=== PATIENT | female | born 1990 | race Caucasian/White ===

== ENCOUNTER 2019-04-22 18:57 | Emergency (ER) | payer OTHER ==
[2019-04-22 19:39] VITALS: BMI 18.8
--- NOTE | 2019-04-22 20:23 | PDOC ---
History of Present Illness - General Chief Complaint: Overdose Stated Complaint: SENT BY DOCTOR Time Seen by Provider: 04/22/19 20:22 Past History - Past Medical History Allergies/Adverse Reactions: Allergies Allergy/AdvReac Type Severity Reaction Status Date / Time No Known Allergies Allergy Verified 04/22/19 19:40 Home Medications: Ambulatory Orders LORazepam [Ativan] 0.5 mg PO PRN PRN 04/22/19 Levonorgestrel-Ethin Estradiol [Kurvelo] 1 each PO DAILY 04/22/19 Sertraline HCl [Zoloft -] 50 mg PO DAILY 04/22/19 Spironolactone [Aldactone] 75 mg PO DAILY 04/22/19 traZODone HCL [Trazodone HCl] 100 mg PO HS 04/22/19 COPD: No Psychiatric Problems: Yes (ANXIETY DISORDER) Other medical history: PCOS - Psycho Social/Smoking Cessation Hx Smoking History: Never smoked Hx Alcohol Use: No Drug/Substance Use Hx: No *Physical Exam - Vital Signs Last Vital Signs Temp Pulse Resp BP Pulse Ox 98.2 F 86 19 121/54 L 99 04/22/19 19:34 04/22/19 19:34 04/22/19 19:34 04/22/19 19:34 04/22/19 19:34 ED Treatment Course - LABORATORY CBC & Chemistry Diagram: 04/22/19 21:05 04/22/19 21:05 Medical Decision Making - Medical Decision Making 04/22/19 20:47 HPI: 28yo F hx MDD, insomnia, anxiety, anorexia (in remission), and PCOS sent by for trazodone overdose 2000mg plus 2 tabs ativan last night (between 2300 and 0000 04/22/19) in attempt to harm self, now with fatigue, headache, nausea , and unsteadiness. Pt has hx of depression since childhood with multiple psychiatric hospitalizations for anorexia, anxiety, and depression, last hospitalization 2011 for nyquil overdose, no other hx of suicide attempts or harming self. Pt has been depressed and hopeless during the holidays, worsened as approach 29th birthday. Last night pt wanted to hurt self so took 2000mg Trazodone and 2 tablets of Ativan. Within 1hr, pt called mother to tell her and mother picked her up from her home. Pt lives at home with 2 roommates. Mother states pt was disoriented, confused, very sleepy, and off balance when walking. Mother took pt here to ED parking lot but did not come in because couldn't get pt out of car, instead went to mother's house. Today pt remained very tired so came in to ED. Endorses tiredness, worsening bitemporal pressure type headache, nausea, and unsteadiness on feet. Endorses confusion, blurry vision, twitching, and vertigo last night, resolved today. Denies other drug use, smoking, alcohol. Pt normally takes Trazodone 100mg-200mg nightly for sleep, Sertraline 50 daily (last yesterday), ativan PRN, OCPs, and spironolactone. Pt still very sad but denies suicidal plan because states feels really crappy now and doesn't want to keep feeling like that. States not trying to kill self but wouldn't mind dying. Denies HI, AVH, fever, chills, numbness/tingling, weakness, shortness of breath, cough, chest pain, palpitations, leg swelling, abdominal pain, blood in stool, diarrhea, constipation, vomiting, dysuria, hematuria. Psychiatrist - Yaquelin Tai, last saw a couple weeks ago Psychologist - Efrain Nielson, last saw a couple weeks ago ROS: Constitutional: Positive for fatigue. Negative for chills, fever, diaphoresis. HENT: Negative for sore throat, rhinorrhea, congestion. Eyes: Positive for blurry vision (resolved). Negative for photophobia. Respiratory: Negative for shortness of breath, cough, and wheezing. Cardiovascular: Negative for chest pain, palpitations, and leg swelling. Gastrointestinal: Positive for slight nausea. Negative for abdominal pain, blood in stool, constipation, diarrhea, and vomiting. Genitourinary: Negative for dysuria, flank pain, and hematuria. Musculoskeletal: Negative for myalgias, back pain, and neck pain. Skin: Negative for rash. Neurological: Positive for feeling of unsteadiness, vertigo, headache. Negative for light-headedness, syncope, weakness, numbness. Psychiatric/Behavioral: Positive for thoughts of hurting self. Negative for HI/ AVH. PE: Gen: Alert, NAD, tired-appearing but alert HEENT: PERRL, EOMI, MMM, NCAT. No conjunctival pallor. Sclera are non-icteric. Oropharynx is clear. CV: Regular rate and rhythm. No murmurs, rubs, or gallops. PULM: No resp distress. CTAB, no wheezes, rales, or rhonchi. ABD: soft, NT/ND, no rebound tenderness or guarding, no CVA tenderness. BACK: No TTP of c/t/l-spine. No step-offs or deformities. MSK: No bony deformities. 2+ pulses in all extremities. NEURO: AAOx3. PERRL. CN 2-12 intact. 5/5 strength in all extremities. Sensation to light touch intact in all extremities. No pronator drift. No dysmetria. No dysdiadochokinesia. No abnormal nystagmus. EXTREMITIES: No cyanosis. No clubbing. No edema. No calf tenderness. PSYCH: Depressed mood. +thoughts of hurting self, no HI/AVH. Normal thought pattern. SKIN: Warm and dry. Normal capillary refill. No rashes. No jaundice. MDM: 28yo F hx MDD, insomnia, anxiety, anorexia (in remission), and PCOS sent by for trazodone overdose 2000mg plus 2 tabs ativan last night (between 2300 and 0000 04/22/19) in attempt to harm self, now with fatigue, headache, nausea , and unsteadiness. Hemodynamically stable, afebrile, neurologically intact. Presentation c/w trazodone overdose. Also consider and r/o other intoxications including acetaminophen, salicylates, alcohol, drugs. Consider organic etiologies of depression and sx including anemia, metabolic derangement, thyroid pathology, , arrhythmia, ACS/NV, or infection. Due to SI and continued thoughts of harming self, pt is not safe to be left alone at this time - 1:1, psych consult. -EKG reviewed: NSR, 64bpm, ND interval 142ms, QRS duration 84ms, QTc 451ms, RAD , no e/o acute ischemia, no priors for comparison -CBC,CMP,Mg,Phos,Coags,Cardiac profile,TSH,Acetaminophen,Salicylates,Alcohol,UDS ,Upreg,UA -CXR: reviewed, no acute pathology -IVF -Poison control -general assembler installer -1:1 -Consult psychiatry -Called pt's psychiatrist Dr Tai - left voicemail -Dispo: likely transfer psych inpatient pending w/u and psych consult Poison control called, spoke with Nneka. Look for ESTIMATOR JEWELRY depression, myoclonus, ataxia, hypotension, bradycardia, QT prolongation Recommend repeat EKG in 6hrs. Check Mg. No QT prolonging drugs. Supportive care. If baseline at 6hrs, can transfer to psych. 04/22/19 21:12 Dr To web content writer for psychiatry - called, no answer, voicemail left. 04/22/19 22:19 Labs reviewed. CBC,CMP WBC 7.0 K/mm3 (4.0-10.0) 04/22/19 21:05 RBC 4.16 M/mm3 (3.60-5.2) 04/22/19 21:05 Hgb 13.9 GM/dL (10.7-15.3) 04/22/19 21:05 Hct 41.6 % (32.4-45.2) 04/22/19 21:05 MCV 99.9 fl (80-96) H 04/22/19 21:05 MCH 33.5 pg (25.7-33.7) 04/22/19 21:05 MCHC 33.5 g/dl (32.0-36.0) 04/22/19 21:05 RDW 12.7 % (11.6-15.6) 04/22/19 21:05 Plt Count 179 K/MM3 (134-434) 04/22/19 21:05 MPV 8.7 fl (7.5-11.1) 04/22/19 21:05 Absolute Neuts (auto) 5.2 K/mm3 (1.5-8.0) 04/22/19 21:05 Neutrophils % 74.1 % (42.8-82.8) 04/22/19 21:05 Lymphocytes % 15.4 % (8-40) 04/22/19 21:05 Monocytes % 10.1 % (3.8-10.2) 04/22/19 21:05 Eosinophils % 0.1 % (0-4.5) 04/22/19 21:05 Basophils % 0.3 % (0-2.0) 04/22/19 21:05 Nucleated RBC % 0 % (0-0) 04/22/19 21:05 Sodium 139 mmol/L (136-145) 04/22/19 21:05 Potassium 3.6 mmol/L (3.5-5.1) 04/22/19 21:05 Chloride 106 mmol/L (98-107) 04/22/19 21:05 Carbon Dioxide 29 mmol/L (21-32) 04/22/19 21:05 Anion Gap 4 MMOL/L (8-16) L 04/22/19 21:05 BUN 10.3 mg/dL (7-18) 04/22/19 21:05 Creatinine 1.1 mg/dL (0.55-1.3) 04/22/19 21:05 Est GFR (CKD-EPI)AfAm 78.57 04/22/19 21:05 Est GFR (CKD-EPI)NonAf 67.79 04/22/19 21:05 Random Glucose 116 mg/dL (74-106) H 04/22/19 21:05 Calcium 9.1 mg/dL (8.5-10.1) 04/22/19 21:05 Phosphorus 2.1 mg/dL (2.5-4.9) L 04/22/19 21:05 Magnesium 2.3 mg/dL (1.8-2.4) 04/22/19 21:05 Total Bilirubin 0.2 mg/dL (0.2-1) 04/22/19 21:05 AST 38 U/L (15-37) H 04/22/19 21:05 ALT 63 U/L (13-61) H 04/22/19 21:05 Alkaline Phosphatase 44 U/L (45-117) L 04/22/19 21:05 Creatine Kinase 42 U/L (26-192) 04/22/19 20:56 Troponin I < 0.02 ng/ml (0.00-0.05) 04/22/19 20:56 Total Protein 7.4 g/dl (6.4-8.2) 04/22/19 21:05 Albumin 4.0 g/dl (3.4-5.0) 04/22/19 21:05 TSH 0.43 uIU/ml (0.358-3.74) 04/22/19 21:05 04/22/19 23:08 Upreg negative. + MDMA (pt denies, most likely false positive from trazodone) 04/23/19 05:20 2nd EKG reviewed: of note, new prolonged QT compared to prior, QTc 466ms (prior 451) BP remains 90s/50s despite 3L IVF and oral hydration. Asymptomatic. No indication for pressors at this time. 04/23/19 06:05 Dr To's office called - no answer, voicemail left. 04/23/19 06:[address] To, answered, stated he would be here by 1000. 04/23/19 07:00 Pt sleeping comfortably. VSS. Pt signed out to oncoming team, pending Dr To evaluation. Discharge - Discharge Information Problems reviewed: Yes Clinical Impression/Diagnosis: Overdose of trazodone Condition: Stable Disposition: HOME - Follow up/Referral Referrals: ON STAFF,NOT [Primary Care Provider] - - Patient Discharge Instructions Patient Printed Discharge Instructions: DI for Drug Overdose in Adults Additional Instructions: Follow up with your Psychiatrist and Psychologist in the next 1-2 days as you had discussed with our Psychiatrist. Return to the Emergency Department if you experience any of the following: - thoughts of hurting yourself or others - change in behavior or personality, confusion - fainting, chest pain, or shortness of breath - anything that concerns you - Post Discharge Activity Work/Back to School Note: Back to Work, Parent(s) Back to Work Note, My Personal Safety Plan
[2019-04-22] MEDS ORDERED: SODIUM CHLORIDE 1,000 ML IV STA (20:42)
--- NOTE | 2019-04-22 20:50 | PDOC ---
Documentation entered by Cindy Hess SCRIBE, acting as scribe for Kriss Almaguer DO. Kriss Almaguer, DO: This documentation has been prepared by the Jimena max Joy, SCRIBE, under my direction and personally reviewed by me in its entirety. I confirm that the documentation accurately reflects all work, treatment, procedures, and medical decision making performed by me. Attending Attestation - Resident Resident Name: Velia Lilly - ED Attending Attestation I have performed the following: I have examined & evaluated the patient, The case was reviewed & discussed with the resident, I agree w/resident's findings & plan, Exceptions are as noted - HPI HPI: 04/22/19 21:22 The patient is a 28 year old female with significant past medical history of depression, insomnia, anxiety, anorexia, and PCOS who presents to the ED with overdose of trazodone (2,000 mg) and ativan s/p wanting to hurt herself/suicide attempt around 11 PM last night. Patient endorses that she currently does not plan to hurt herself but is more sad, tired, has a bitemporal headache, nausea, and feels unsteady. As per patient, after she overdosed, she felt out of it, she was sleepy, confused, and was off balance, so she called her mom who took her home. Patient states that she went to an urgent care but was sent here for further evaluation. The patient denies any hallucinations. Allergies: NKA - Physicial Exam PE: 04/22/19 21:35 gen: aaox3, flat affect, tearful heart: +s1s2 reg lungs: cta b/l abd: soft, nt/nd +bs ext: no c/c/e neuro: aaox3, no focal deficits psych: +si, no hi, depressed, tearful, flat affect, no hallucinations - Medical Decision Making 04/22/19 21:36 a/p: 28yo female s/p trazadone OD and ativan OD last night -took meds around 11p -presents today c/o feeling sick, nausea, no vomiting -states she feels tired -felt dizzy and weak earlier, but that has resolved -hx of psych admissions in the past -has outpt psych -mother at the bedside -pt lives in [place] with roommates -will send labs, consult psych -resident discussed the case with poison control who recommends labs, mag, repeat ekg in 6 hours -ivf hydration running -will monitor and reassess -1:1 04/22/19 22:48 mdma + 04/23/19 01:48 cxr clear 04/23/19 02:01 pt signed out to the oncoming ED physician pending psych eval Heart Score/ECG Review - ECG Intrepretation Comment:: 04/22/19 20:49 sinus at 64, R axis, nl interval, no acute st/t wave findings
[2019-04-22 21:20] LABS: BASO % 0.3 % (0-2.0); EOS % 0.1 % (0-4.5); HEMATOCRIT 41.6 % (32.4-45.2); HEMOGLOBIN 13.9 GM/dL (10.7-15.3); LYMPH % 15.4 % (8-40); MCH 33.5 pg (25.7-33.7); MCHC 33.5 g/dl (32.0-36.0); MEAN CELL VOLUME 99.9 fl (80-96); MEAN PLT VOLUME 8.7 fl (7.5-11.1); MONO % 10.1 % (3.8-10.2); NEUT % 74.1 % (42.8-82.8); PLATELET COUNT 179 K/MM3 (134-434); RBC 4.16 M/mm3 (3.60-5.2); RDW 12.7 % (11.6-15.6)
[2019-04-22 21:27] LABS: EPI CELLS 3.5 /HPF (0-5/HPF); HYALINE CASTS 44 /lpf (0-8); PH,URINE 5.5 (5.0-8.0); URINE APPEARANCE CLOUDY; URINE BACTERIA 671.3 /hpf (NEGATIVE); URINE BILIRUBIN NEGATIVE (NEGATIVE); URINE COLOR YELLOW; URINE GLUCOSE (UA) NEGATIVE (NEGATIVE); URINE KETONE TRACE (NEGATIVE); URINE LEUK ESTERASE NEGATIVE (NEGATIVE); URINE NITRITE NEGATIVE (NEGATIVE); URINE PROTEIN 2+ (NEGATIVE)
[2019-04-22 21:44] LABS: COCAINE, UR NEGATIVE ng/ml (CUTOFF=300); METHADONE, UR NEGATIVE ng/ml (CUTOFF=300); OPIATES, URI NEGATIVE ng/ml (CUTOFF=300); PHENCYCLIDINE,URINE NEGATIVE ng/ml (CUTOFF=25); URINE AMPHETAMINES NEGATIVE ng/ml (CUTOFF=500); URINE BARBITURATES NEGATIVE ng/ml (CUTOFF=200); URINE BENZODIAZEPINES NEGATIVE ng/ml (CUTOFF=200)
[2019-04-22 21:47] LABS: BILIRUBIN,TOTAL 0.2 mg/dL (0.2-1); BLOOD UREA NITROGEN 10.3 mg/dL (7-18); CALCIUM 9.1 mg/dL (8.5-10.1); CREATININE 1.1 mg/dL (0.55-1.3); MAGNESIUM 2.3 mg/dL (1.8-2.4); PHOSPHOROUS 2.1 mg/dL (2.5-4.9); POTASSIUM 3.6 mmol/L (3.5-5.1); TOT PROT 7.4 g/dl (6.4-8.2)
[2019-04-22 23:10] LABS: URINE WBC 0-3 /hpf (0-5)
[2019-04-23] MEDS ORDERED: SODIUM CHLORIDE 0.9% 500 ML INFUS.BAG IV ONE ×2 (02:26→03:36)
[2019-04-23 05:25] VITALS: PULSE 60; TEMP 98
[2019-04-23 07:02] VITALS: BP 99/57
--- NOTE | 2019-04-23 07:34 | PDOC ---
*Physical Exam - Vital Signs Last Vital Signs Temp Pulse Resp BP Pulse Ox 98.0 F 60 17 99/57 L 98 04/23/19 05:24 04/23/19 05:24 04/23/19 05:24 04/23/19 07:00 04/23/19 05:24 ED Treatment Course - LABORATORY CBC & Chemistry Diagram: 04/22/19 21:05 04/22/19 21:05 - ADDITIONAL ORDERS Additional order review: Laboratory Results 04/22/19 04/22/19 04/22/19 21:14 21:14 21:14 Sodium Potassium Chloride Carbon Dioxide Anion Gap BUN Creatinine Est GFR (CKD-EPI)AfAm Est GFR (CKD-EPI)NonAf Random Glucose Calcium Phosphorus Magnesium Total Bilirubin AST ALT Alkaline Phosphatase Creatine Kinase Troponin I Total Protein Albumin TSH Beta HCG, Quant Urine Color Yellow Urine Appearance Cloudy Urine pH 5.5 Ur Specific [place] 1.031 Urine Protein 2+ H Urine Glucose (UA) Negative Urine Ketones Trace H Urine Blood 1+ H Urine Nitrite Negative Urine Bilirubin Negative Urine Urobilinogen 1.0 Ur Leukocyte Esterase Negative Urine WBC (Auto) 0-3 Urine RBC (Auto) 2-5 Urine Casts (Auto) 44 U Pathogenic Cast Auto Review A* U Epithel Cells (Auto) 3.5 Urine Bacteria (Auto) 671.3 Urine HCG, Qual Negative Salicylates Opiates Screen Negative Methadone Screen Negative Acetaminophen Barbiturate Screen Negative Phencyclidine Screen Negative Ur Amphetamines Screen Negative MDMA (Ecstasy) Screen Positive A* Benzodiazepines Screen Negative Cocaine Screen Negative U Marijuana (THC) Screen Negative Alcohol, Quantitative 04/22/19 04/22/19 04/22/19 21:05 21:05 21:05 Sodium 139 Potassium 3.6 Chloride 106 Carbon Dioxide 29 Anion Gap 4 L BUN 10.3 Creatinine 1.1 Est GFR (CKD-EPI)AfAm 78.57 Est GFR (CKD-EPI)NonAf 67.79 Random Glucose 116 H Calcium 9.1 Phosphorus Cancelled 2.1 L Magnesium 2.3 Total Bilirubin 0.2 AST 38 H ALT 63 H Alkaline Phosphatase 44 L Creatine Kinase Troponin I Total Protein 7.4 Albumin 4.0 TSH 0.43 Beta HCG, Quant Urine Color Urine Appearance Urine pH Ur Specific [place] Urine Protein Urine Glucose (UA) Urine Ketones Urine Blood Urine Nitrite Urine Bilirubin Urine Urobilinogen Ur Leukocyte Esterase Urine WBC (Auto) Urine RBC (Auto) Urine Casts (Auto) U Pathogenic Cast Auto U Epithel Cells (Auto) Urine Bacteria (Auto) Urine HCG, Qual Salicylates Opiates Screen Methadone Screen Acetaminophen Barbiturate Screen Phencyclidine Screen Ur Amphetamines Screen MDMA (Ecstasy) Screen Benzodiazepines Screen Cocaine Screen U Marijuana (THC) Screen Alcohol, Quantitative < 3 04/22/19 04/22/19 21:05 20:56 Sodium Potassium Chloride Carbon Dioxide Anion Gap BUN Creatinine Est GFR (CKD-EPI)AfAm Est GFR (CKD-EPI)NonAf Random Glucose Calcium Phosphorus Magnesium Total Bilirubin AST ALT Alkaline Phosphatase Creatine Kinase 42 Troponin I < 0.02 Total Protein Albumin TSH Beta HCG, Quant < 1.0 Urine Color Urine Appearance Urine pH Ur Specific [place] Urine Protein Urine Glucose (UA) Urine Ketones Urine Blood Urine Nitrite Urine Bilirubin Urine Urobilinogen Ur Leukocyte Esterase Urine WBC (Auto) Urine RBC (Auto) Urine Casts (Auto) U Pathogenic Cast Auto U Epithel Cells (Auto) Urine Bacteria (Auto) Urine HCG, Qual Salicylates < 1.7 L Opiates Screen Methadone Screen Acetaminophen --noresult-- Barbiturate Screen Phencyclidine Screen Ur Amphetamines Screen MDMA (Ecstasy) Screen Benzodiazepines Screen Cocaine Screen U Marijuana (THC) Screen Alcohol, Quantitative 04/22/19 21:05 RBC 4.16 MCV 99.9 H MCHC 33.5 RDW 12.7 MPV 8.7 Neutrophils % 74.1 Lymphocytes % 15.4 Monocytes % 10.1 Eosinophils % 0.1 Basophils % 0.3 - Medications Given in the ED: ED Medications Discontinued Medications Generic Name Dose Route Start Last Admin Trade Name Sallie PRN Reason Stop Dose Admin Sodium Chloride 1,000 mls @ 1,000 mls/hr 04/22/19 20:42 04/22/19 21:12 Normal Saline - IV 04/22/19 21:41 1,000 mls/hr ASDIR STA Administration Sodium Chloride 1,000 ml 04/23/19 02:26 04/23/19 02:30 Normal Saline - IV 04/23/19 02:27 1,000 ml ONCE ONE Administration Sodium Chloride 1,000 ml 04/23/19 03:36 04/23/19 03:44 Normal Saline - IV 04/23/19 03:37 1,000 ml ONCE ONE Administration Medical Decision Making - Medical Decision Making 04/23/19 07:[address] Lilly: 28yo F hx MDD, insomnia, anxiety, anorexia (in remission), and PCOS p/w intentional OD of trazodone 2000mg plus coingestion of 2 tabs ativan between 2300 04/21/19 and 0000 04/22/19. Was attempting to harm self; now with fatigue, headache, nausea, and unsteadiness. Hemodynamically stable, afebrile, neurologically intact. s/p 3L NS; borderline BPs awaiting psychiatry evtammy, Dr. To called team back state will be in by 10: 00am [] f/u psychiatry 04/23/19 11:08 Psychiatry note appreciated and A/P as follows: 1) Discharge patient in care of her Mother. 2) will follow up with Her Psych this weekend. DC home w/ psych f/u this weekend Discharge - Discharge Information Problems reviewed: Yes Clinical Impression/Diagnosis: Overdose of trazodone Condition: Stable Disposition: HOME - Admission No - Follow up/Referral Referrals: ON STAFF,NOT [Primary Care Provider] - - Patient Discharge Instructions Patient Printed Discharge Instructions: DI for Drug Overdose in Adults Additional Instructions: Follow up with your Psychiatrist and Psychologist in the next 1-2 days as you had discussed with our Psychiatrist. Return to the Emergency Department if you experience any of the following: - thoughts of hurting yourself or others - change in behavior or personality, confusion - fainting, chest pain, or shortness of breath - anything that concerns you - Post Discharge Activity Work/Back to School Note: My Personal Safety Plan, Back to Work, Parent(s) Back to Work Note
--- NOTE | 2019-04-23 10:53 | CON.PSY ---
Psychiatry Consult Chief Complaint: 28 Joaquin old female with a history of Anorexia, under control, major Depressive Diosrder seen for Psych eval. She took 2000mg of Trazadone on Friday, brought to Er by Mother. Patient has a Psych an d a therapist. On Zoloft, ativan and Traxzadone. Patient denies that she wanted to Kill herself but felt lot of Pressure with Job etc. Feels remorssful at this btime. Also spoke with Mother who is very suppportive and wants to bring her Home. Symptoms: reports: Depressed Mood, Anxiety - Previous Psychiatric Treatment Outpatient: Less than 6 mos ago Inpatient: 2 or more prior admissions - Previous Substance Abuse Treatment Outpatient: None Inpatient: None - Reason for Previous Treatment Reason for Previous Treatment: Major Depression, Anxiety or Panic Disorder - Allergies Allergies: Allergies Allergy/AdvReac Type Severity Reaction Status Date / Time No Known Allergies Allergy Verified 04/22/19 19:40 - Current Living Status Usual Living Arrangement: Alone - Current Mental Status Evaluation Appearance: Disheveled Attitude: Cooperative - Affect Affect: Constrictive Appropriateness: Appropriate to Content - Mood Mood: Euthymic, Depressed, Anxious - Speech/Language Expressive: Coherent - Psychomotor Activity Psychomotor Activity: Normal - Thought Process Thought Process: Intact - Thought Content Hallucinations: Absent Delusions: Absent - Self Perception Self Perception: No Impairment - Cognition Attention: Alert Orientation: Time Memory, Immediate Recall: Intact Memory, Short Term: 3/3 Memory, Remote with Promptin/3 - Concentration Serial Sevens Intact: Yes Simple Calculations Intact: Yes - Abstraction Proverb Interpretation: Intact Judgement: Minimally Impaired - Insight Insight: Intact - Impulse Control Impulse Control: Minimally Impaired - Suicidal Ideation Suicidal Ideation: No - Homicidal Ideation Homicidal Ideation: No Assessment/Plan 1) Discharge patient in care of her Mother. 2) will follow up with Her Psych this weekend.
--- NOTE | 2019-04-23 13:22 | EKG ---
Test Reason : Blood Pressure : / mmHG Vent. Rate : 062 BPM Atrial Rate : 062 BPM P-R Int : 156 ms QRS Dur : 086 ms QT Int : 460 ms P-R-T Axes : 083 116 083 degrees QTc Int : 466 ms NORMAL SINUS RHYTHM RIGHT AXIS DEVIATION PULMONARY DISEASE PATTERN NONSPECIFIC T WAVE ABNORMALITY PROLONGED QT ABNORMAL ECG WHEN COMPARED WITH ECG OF 22-APR-2019 20:29, NO SIGNIFICANT CHANGE WAS FOUND Confirmed by DINA NELSON, GERARDO ([id number]) on 04/23/2019 1:21:55 PM Referred By: Confirmed By:GERARDO ARROYO MD
--- NOTE | 2019-04-23 13:22 | EKG ---
Test Reason : Blood Pressure : / mmHG Vent. Rate : 064 BPM Atrial Rate : 064 BPM P-R Int : 142 ms QRS Dur : 084 ms QT Int : 438 ms P-R-T Axes : 082 117 081 degrees QTc Int : 451 ms NORMAL SINUS RHYTHM POSSIBLE LEFT ATRIAL ENLARGEMENT RIGHT AXIS DEVIATION PULMONARY DISEASE PATTERN NONSPECIFIC ST ABNORMALITY ABNORMAL ECG NO PREVIOUS ECGS AVAILABLE Confirmed by GERARDO ARROYO MD ([id number]) on 04/23/2019 1:21:41 PM Referred By: Confirmed By:GERARDO ARROYO MD
== END 2019-04-23 11:45 | disposition home or self-care (01) ==
LOC: JER 18:57
PROC: 3E0337Z Introduction of Electrolytic and Water Balance Substance into Peripheral Vein, Percutaneous Approach (ICD-10-PCS; principal; 2019-04-22)
DX: T43.212A Poisoning by selective serotonin and norepinephrine reuptake inhibitors, intentional self-harm, initial encounter (principal); R42 Dizziness and giddiness; R11.0 Nausea; R53.83 Other fatigue; Y92.038 Other place in apartment as the place of occurrence of the external cause; F41.9 Anxiety disorder, unspecified; F32.9 Major depressive disorder, single episode, unspecified; G47.00 Insomnia, unspecified; E28.2 Polycystic ovarian syndrome; Z86.59 Personal history of other mental and behavioral disorders
CPT/HCPCS: 36415; 71045-TC-FY; 80053; 80307; 81003; 82550; 83735; 84100; 84443; 84484; 84702; 84703; 85025; 93005; 93010; 99285-25; J7030